=== PATIENT | female | born 1965 | race Caucasian/White ===

== ENCOUNTER 2018-02-04 05:21 | Inpatient (IN) | payer BC ==
[2018-02-04] MEDS ORDERED: NEOSTIGMINE 3 MG/3 ML SYRINGE (07:00)
[2018-02-04] MEDS ORDERED: GLYCOPYRROLATE 0.4 MG INJ (07:00)
[2018-02-04] MEDS ORDERED: LIDOCAINE 2% (SDV) 5 ML INJ (07:00)
[2018-02-04] MEDS ORDERED: BUPIVACAINE 0.75%/DEXT (SPINAL) 2 ML INJ (07:17)
[2018-02-04] MEDS ORDERED: morphine SULFATE/PF (10 MG/10 ML) INJ (07:17)
[2018-02-04] MEDS ORDERED: MIDAZOLAM 1 MG/ML 2 ML INJ (07:39)
[2018-02-04] MEDS ORDERED: PROPOFOL 20 ML (07:54)
[2018-02-04] MEDS ORDERED: PHENYLephrine (100 MCG/ML) 5ML SYG (07:54)
[2018-02-04] MEDS ORDERED: CEFAZOLIN 1 GM INJ (07:55)
[2018-02-04] MEDS ORDERED: ROCURONIUM 50 MG INJ (07:55)
[2018-02-04] MEDS ORDERED: HYDROCODONE/APAP (5/325) TAB PO ×2 (08:00)
[2018-02-04] MEDS ORDERED: BISACODYL (EC) 5 MG TAB PO (08:00)
[2018-02-04] MEDS: KETOROLAC 30 MG INJ IV ×3 (08:00→21:08)
[2018-02-04] MEDS ORDERED: HYDROmorphONE 1 MG/ML SYG IV (08:00)
[2018-02-04] MEDS ORDERED: DIPHENHYDRAMINE 50 MG CAP PO (08:00)
[2018-02-04] MEDS ORDERED: ONDANSETRON INJ 6 MG in DEXTROSE 5% 50 ML IVPB (08:00)
[2018-02-04] MEDS ORDERED: DEXAMETHASONE 4 MG/ML 1 ML INJ (08:48)
[2018-02-04] MEDS ORDERED: ONDANSETRON 4 MG INJ ×2 (08:49→10:04)
[2018-02-04] MEDS ORDERED: ONDANSETRON 4 MG INJ IV (10:00)
[2018-02-04] MEDS ORDERED: ALBUTEROL 0.083% (NEB) 2.5 MG/3 ML AMP HHN (10:00)
[2018-02-04] MEDS ORDERED: MEPERIDINE 25 MG INJ IV (10:00)
[2018-02-04] MEDS ORDERED: DIPHENHYDRAMINE 50 MG INJ IV ×2 (10:00)
[2018-02-04] MEDS ORDERED: MIDAZOLAM 1 MG/ML 2 ML INJ IV (10:00)
[2018-02-04] MEDS ORDERED: FENTAnyl 50 MCG/ML VIAL IV ×3 (10:00)
[2018-02-04] MEDS ORDERED: NALOXONE (0.4 MG/ML) INJ IV (10:00)
[2018-02-04] MEDS ORDERED: METOCLOPRAMIDE 10 MG INJ IV (10:00)
[2018-02-04] MEDS ORDERED: KETOROLAC 30 MG INJ IV ×2 (10:00)
[2018-02-04] MEDS ORDERED: EPHEDrine SULFATE 50 MG/5 ML SYG IV (10:00)
[2018-02-04] MEDS ORDERED: OXYCODONE/ACETAMINOPHEN (5/325) TAB PO ×2 (10:00)
[2018-02-04] MEDS ORDERED: HYDROmorphONE 0.5 MG/0.5 ML SYG IV ×2 (10:00)
[2018-02-04] MEDS ORDERED: LABETALOL HCL 20MG INJ IV (10:00)
[2018-02-04] MEDS ORDERED: HYDROmorphONE 1 MG/5 ML IV SYRINGE IV ×3 (10:00)
[2018-02-04] MEDS ORDERED: hydrALAzine 20 MG INJ IV (10:00)
[2018-02-04] MEDS: ONDANSETRON 4 MG INJ IV (10:09)
[2018-02-04] MEDS: LACTATED RINGER'S 1,000 ML IV ×3 (10:11→22:59)
[2018-02-04] MEDS: METOCLOPRAMIDE 10 MG TAB PO ×2 (13:14→17:22)
[2018-02-04] MEDS: CEFAZOLIN 1 GM/50 ML (PMX) 50 ML IVPB ×2 (13:15→21:07)
[2018-02-04] MEDS ORDERED: ZOLPIDEM 5 MG TAB PO ×2 (21:00)
[2018-02-05] MEDS: METOCLOPRAMIDE 10 MG TAB PO ×5 (00:21→23:54)
[2018-02-05] MEDS: KETOROLAC 30 MG INJ IV ×4 (02:00→20:46)
[2018-02-05] MEDS: CEFAZOLIN 1 GM/50 ML (PMX) 50 ML IVPB ×2 (05:21→13:47)
[2018-02-05 05:30] LABS: ADD MAN DIFF? NO
[2018-02-05 05:34] LABS: ABNORMAL IP MESSAGE 1; BASOPHILS % 0.2 % (0.0-2.0); HEMATOCRIT 30.5 % (37.0-47.0); HEMOGLOBIN 10.2 g/dl (12.0-16.0); LYMPHOCYTES # 2.3 10^3/ul (0.8-2.9); LYMPHOCYTES % 18.2 % (15.0-51.0); MEAN CORPUSCULAR HEMOGLOBIN 29.5 pg (29.0-33.0); MEAN CORPUSCULAR HGB CONC 33.4 g/dl (32.0-37.0); MEAN CORPUSCULAR VOLUME 88.2 fl (82.0-101.0); MONOCYTE # 1.7 10^3/ul (0.3-0.9); MONOCYTES % 13.7 % (0.0-11.0); NEUTROPHIL # 8.6 10^3/ul (1.6-7.5); NEUTROPHILS % 67.6 % (39.0-77.0); PLATELET COUNT 262 10^3/UL (140-415); RED BLOOD COUNT 3.46 10^6/ul (4.20-5.40); RED CELL DISTRIBUTION WIDTH 12.9 % (11.5-14.5)
[2018-02-05 05:34] LABS: WHITE BLOOD COUNT 12.7 10^3/ul (4.8-10.8)
[2018-02-05 06:00] LABS: POSITIVE DIFF @See below
[2018-02-05 06:07] LABS: ANION GAP 8 (8-16); BLOOD UREA NITROGEN 8 mg/dl (7-20); CARBON DIOXIDE 26 mmol/L (21-31); CHLORIDE 109 mmol/L (97-110); SODIUM 139 mmol/L (135-144)
[2018-02-05] MEDS: LACTATED RINGER'S 1,000 ML IV (07:41)
[2018-02-05 16:21] LABS: ADD UMIC NO; UR ASCORBIC ACID NEGATIVE (NEGATIVE); UR BILIRUBIN (Dip) NEGATIVE (NEGATIVE); UR BLOOD (Dip) NEGATIVE (NEGATIVE); UR CLARITY CLEAR (CLEAR); UR COLOR YELLOW (YELLOW); UR GLUCOSE (Dip) NEGATIVE (NEGATIVE); UR KETONES (Dip) NEGATIVE (NEGATIVE); UR LEUKOCYTE ESTERASE (Dip) NEGATIVE Leu/ul (NEGATIVE); UR NITRITE (Dip) NEGATIVE (NEGATIVE); UR SPECIFIC GRAVITY (Dip) 1.011 (1.003-1.030); UR TOTAL PROTEIN (Dip) NEGATIVE (NEGATIVE); UR UROBILINOGEN (Dip) NEGATIVE (NEGATIVE)
[2018-02-05] MEDS: BISACODYL (EC) 5 MG TAB PO (21:04)
[2018-02-06] MEDS: KETOROLAC 30 MG INJ IV ×2 (02:00→07:56)
[2018-02-06 05:41] LABS: ADD MAN DIFF? NO
[2018-02-06 05:45] LABS: BASOPHIL # 0.1 10^3/ul (0.0-0.1); BASOPHILS % 0.6 % (0.0-2.0); EOSINOPHILS % 0.2 % (0.0-7.0); HEMATOCRIT 33.5 % (37.0-47.0); HEMOGLOBIN 11.2 g/dl (12.0-16.0); LYMPHOCYTES # 2.4 10^3/ul (0.8-2.9); MEAN CORPUSCULAR HEMOGLOBIN 29.5 pg (29.0-33.0); MEAN CORPUSCULAR HGB CONC 33.4 g/dl (32.0-37.0); MEAN CORPUSCULAR VOLUME 88.2 fl (82.0-101.0); MEAN PLATELET VOLUME 9.9 fl (7.4-10.4); MONOCYTE # 0.9 10^3/ul (0.3-0.9); MONOCYTES % 9.5 % (0.0-11.0); NEUTROPHIL # 6.2 10^3/ul (1.6-7.5); NEUTROPHILS % 64.4 % (39.0-77.0); PLATELET COUNT 288 10^3/UL (140-415)
[2018-02-06 05:45] LABS: WHITE BLOOD COUNT 9.7 10^3/ul (4.8-10.8)
[2018-02-06] MEDS: METOCLOPRAMIDE 10 MG TAB PO (06:06)
== END 2018-02-06 11:45 | disposition home or self-care (01) | DRG 743 ==
LOC: REC 05:21 → MS2 13:05
PROC: 0UT90ZZ Resection of Uterus, Open Approach (ICD-10-PCS; principal; 2018-02-04 07:30)
PROC: 0UT70ZZ Resection of Bilateral Fallopian Tubes, Open Approach (ICD-10-PCS; 2018-02-04 07:30)
DX: D25.9 Leiomyoma of uterus, unspecified (principal); N80.3 Endometriosis of pelvic peritoneum; D64.9 Anemia, unspecified
CPT/HCPCS: 71045; 80051; 81003; 82565; 84520; 85025; 86850; 86900; 86901; 87086; 88305